=== PATIENT | male | born 1995 | race Caucasian/White ===

== ENCOUNTER 2017-09-03 21:54 | Emergency (ER) | payer BC ==
[~2017-09-03] VITALS: Ht 177.8 cm; Wt 93.2 kg
[2017-09-03] MEDS ORDERED: NORCO 5/3251 TABLET PO (23:23)
[2017-09-03] MEDS ORDERED: MOTRIN600 MG PO (23:23)
[2017-09-04 01:07] VITALS: BP 120/67
== END 2017-09-04 01:08 | disposition home or self-care (01) ==
LOC: EME 21:54
DX: M79.651 Pain in right thigh (principal); M25.551 Pain in right hip
CPT/HCPCS: 73552; 73564; 99281; 99284